=== PATIENT | female | born 1970 | race Caucasian/White ===

== ENCOUNTER 2018-12-21 11:00 | Outpatient (RCR) ==
--- NOTE | 2018-11-22 11:56 | RS.OPPTDN ---
Subjective Date of Note: 11/22/18 Visit #: 3 Number of visits approved by Insurance: na Date of Evaluation: 11/15/18 Payer Source: Insurance Treatment Diagnosis: open dislocation r ankle, R ankle pain, joint stiffness, joint effusion Current Subjective/complaints:: Patient reports she is seeing improvement in strength and motion of the right ankle. States she continues to use the w/c when going out in public and at work. *Precautions: WBAT with Cam boot, may remove boot for ex. Pain Assessment - Pain Description Pain Location: right ankle, heel Current Pain Intensity: mod with weight-bearing - Treatment Modality: Ultrasound Parameters/Method Applied: [id number] at 1.5w/cm2 to the right ankle and along the distal achilles tendon. Patient Position: Supine - Heat/Cryotherapy Treatment: Hot Pack ([id number] to the right foot and ankle prior to US and EX. ) Interventions - Exercise/Activities/Manual Therapy Exercises/Activities: Assisted ROM right ankle. Gentle end range stretching. Isometric right ankle DF, IV, and EV. Reviewed towel stretch. Soleus stretch with stool in sitting. Standing with walker for weight shifting and heel cord stretch. Worked on weight-bearing and modified toe-up on right. In sitting, right FAQ and ham curl with yellow theraband. Wobble board with right foot. Total minutes of Exercise: 24mins Manual Therapy: Retrograde massage to right foot and ankle. Total minutes of Manual Therapy: 3mins HOME EXERCISE PROGRAM: pt given written HEP including isometric DF, PF, inversion, eversion as well as towel stretch. Steps stretch for soleus/heel cords. Standing heel cord stretch, knee flex, and hip abd. - Charges Timed Code Treatment Minutes: 39mins Total Treatment Time: 54mins Procedures billed for this date of service:: HP, US, EX2 Assessment: Patient doing better with standing, weight-bearing, and exercises today. Patient Education: Body/Joint mechanics, Home Exercise Program, Home Safety Patient demonstrates compliance with HEP?: Yes Short Term Goals Goal #1: pt independent with initial HEP Goal to be met by: 12/06/18 Progress towards Goal:: Progressing Goal #2: Decreased edema R ankle Goal to be met by: 12/06/18 Progress towards Goal:: Progressing Goal #3: pt amb in dept with walker with CAM boot WBAT CGA 50 ft Goal to be met by: 12/06/18 Progress towards Goal:: Progressing Goal #4: Improve R ankle ROM DF -5, PF 20, IV 20, eversion 15 Goal to be met by: 12/06/18 Cigar Packer Goals Goal #1: pt amb functional household distances with AAD independently with boot WBAT Goal to be met by: 12/27/18 Goal #2: pt report pain < 4/10 with amb in R ankle Goal to be met by: 12/27/18 Goal #3: Improve LE functional scale > 35 Goal to be met by: 12/27/18 Goal #4: R ankle strength improved to 4-/5 Goal to be met by: 12/27/18 Plan Dates of Mcfp Goals: 12/27/18 Expiration date of current Insurance Approval:: 12/27/18 PLAN: Continue modalities, manual therapy, and progress exercise to increase functional activity level.
--- NOTE | 2018-11-23 11:55 | RS.OPPTDN ---
Subjective Date of Note: 11/23/18 Visit #: 4 Number of visits approved by Insurance: na Date of Evaluation: 11/15/18 Payer Source: Insurance Treatment Diagnosis: open dislocation r ankle, R ankle pain, joint stiffness, joint effusion Current Subjective/complaints:: Patient reports right ankle seems less swollen and ROM is progressing. States she is working on putting more weight on the right LE when standing and walking. *Precautions: WBAT with Cam boot, may remove boot for ex. Pain Assessment - Pain Description Pain Location: right heel, ankle Current Pain Intensity: mild to mod with WB, no pain at rest - Treatment Modality: Ultrasound Parameters/Method Applied: [id number] at 1.5w/cm2 to the right ankle and along the achilles tendon. Patient Position: Supine - Heat/Cryotherapy Treatment: Hot Pack ([id number] to the right foot/ankle prior to US and EX. Patient in supine. ) Interventions - Exercise/Activities/Manual Therapy Exercises/Activities: Assisted ROM right ankle. Gentle end range stretching. Isometric right ankle DF, IV, and EV. AROM right ankle, including circles cw and ccw. Soleus stretch with stool in sitting. Standing with walker for weight shifting and heel cord stretch. Forward weight shifting onto right forefoot, then onto right heel. In sitting, wobble board for right ankle ROM. In sitting , added 3# to right ankle for resisted LAQ and hip flexion. Total minutes of Exercise: 22mins Manual Therapy: Retrograde massage to right foot and ankle. Total minutes of Manual Therapy: 15mins HOME EXERCISE PROGRAM: pt given written HEP including isometric DF, PF, inversion, eversion as well as towel stretch. Steps stretch for soleus/heel cords. Standing heel cord stretch, knee flex, and hip abd. - Charges Timed Code Treatment Minutes: 47mins Total Treatment Time: 62mins Procedures billed for this date of service:: HP, US, MT, EX Assessment: Patient reporting consistent improvement with weight bearing. Patient Education: Home Exercise Program Patient demonstrates compliance with HEP?: Yes Short Term Goals Goal #1: pt independent with initial HEP Goal to be met by: 12/06/18 Progress towards Goal:: Progressing Goal #2: Decreased edema R ankle Goal to be met by: 12/06/18 Progress towards Goal:: Progressing Goal #3: pt amb in dept with walker with CAM boot WBAT CGA 50 ft Goal to be met by: 12/06/18 Progress towards Goal:: Progressing Goal #4: Improve R ankle ROM DF -5, PF 20, IV 20, eversion 15 Goal to be met by: 12/06/18 Auto Painter Helper Goals Goal #1: pt amb functional household distances with AAD independently with boot WBAT Goal to be met by: 12/27/18 Goal #2: pt report pain < 4/10 with amb in R ankle Goal to be met by: 12/27/18 Goal #3: Improve LE functional scale > 35 Goal to be met by: 12/27/18 Goal #4: R ankle strength improved to 4-/5 Goal to be met by: 12/27/18 Plan Dates of Prison Goals: 12/27/18 Expiration date of current Insurance Approval:: 12/27/18 PLAN: Continue modalities, manual therapy, and progressive exercise to increase functional ambulation.
--- NOTE | 2018-11-26 16:29 | RS.OPPTDN ---
Subjective Date of Note: 11/26/18 Visit #: 5 Number of visits approved by Insurance: n/a Date of Evaluation: 11/15/18 Payer Source: Insurance Treatment Diagnosis: open dislocation r ankle, R ankle pain, joint stiffness, joint effusion Current Subjective/complaints:: pt states that she feels like she is getting stronger since starting therapy. States she is able to be up walking in the house with rwx, but continues to use w/c for longer distances. *Precautions: WBAT with Cam boot, may remove boot for ex. Pain Assessment - Pain Description Pain Location: R ankle Pain Description: Aching Current Pain Intensity: 3 - Treatment Modality: Ultrasound Parameters/Method Applied: 1.5 w/cm2 x 10 mins Treatment Area: R ankle and achilles Patient Position: Supine - Heat/Cryotherapy Treatment: Hot Pack Comments:: R ankle x 15 mins prior to ex Interventions - Exercise/Activities/Manual Therapy Exercises/Activities: pt received passive stretching to R heel cord, Isometric R ankle DF/PF, Inversion/Eversion as well as ankle circles. pt worked on wobble board R ankle and performed LAQ, seated hip flex with 3# wt to R LE 2 sets of 10 reps. pt also in standing worked on weight shifting forward and back as well as R to L. Manual Therapy: Retrograde massage to right foot and ankle. HOME EXERCISE PROGRAM: pt given written HEP including isometric DF, PF, inversion, eversion as well as towel stretch. Steps stretch for soleus/heel cords. Standing heel cord stretch, knee flex, and hip abd. - Charges Timed Code Treatment Minutes: 42 Total Treatment Time: 59 Procedures billed for this date of service:: hp, u/s, ex 2 Assessment: pt continues with edema R foot and lower leg. pt is improving with increased ability to weight bear as well as improved strength RLE. Patient Education: Home Exercise Program, Education of Plan of Care Patient demonstrates compliance with HEP?: Yes Short Term Goals Goal #1: pt independent with initial HEP Goal to be met by: 12/06/18 Progress towards Goal:: Met Goal #2: Decreased edema R ankle Goal to be met by: 12/06/18 Progress towards Goal:: Progressing Goal #3: pt amb in dept with walker with CAM boot WBAT CGA 50 ft Goal to be met by: 12/06/18 Progress towards Goal:: Progressing Goal #4: Improve R ankle ROM DF -5, PF 20, IV 20, eversion 15 Goal to be met by: 12/06/18 Progress towards Goal:: Progressing Dock Attendant Goals Goal #1: pt amb functional household distances with AAD independently with boot WBAT Goal to be met by: 12/27/18 Goal #2: pt report pain < 4/10 with amb in R ankle Goal to be met by: 12/27/18 Goal #3: Improve LE functional scale > 35 Goal to be met by: 12/27/18 Goal #4: R ankle strength improved to 4-/5 Goal to be met by: 12/27/18 Plan Dates of Dock Attendant Goals: 12/27/18 Expiration date of current Insurance Approval:: 12/27/18 PLAN: plan to continue with ex for stretching, strengthening as well as modalities to improve R ankle ROM as well as functional mobility.
--- NOTE | 2018-11-29 12:41 | RS.OPPTDN ---
Subjective Date of Note: 11/29/18 Visit #: 6 Number of visits approved by Insurance: na Date of Evaluation: 11/15/18 Payer Source: Insurance Treatment Diagnosis: open dislocation r ankle, R ankle pain, joint stiffness, joint effusion Current Subjective/complaints:: Patient reports she was able to walk into [employer] and into a local restaurant with crutches. States she would like to progress to a cane. *Precautions: WBAT with Cam boot, may remove boot for ex. Pain Assessment - Pain Description Pain Location: right ankle Current Pain Intensity: mild to mod with WB - Treatment Modality: Ultrasound Parameters/Method Applied: [id number] to the right ankle and along the distal achilles tendon. Patient in supine. - Heat/Cryotherapy Treatment: Hot Pack ([id number] to the right ankle prior to US and EX. patient in supine. ) Interventions - Exercise/Activities/Manual Therapy Exercises/Activities: pt received passive stretching to right heel cord, Isometric right ankle DF, PF, Inv, and Eversion, ankle circles cw and ccw. Wobble board R ankle and performed LAQ, seated hip flex, and ham curl with green theraband. Standing weight shifting and instruction on proper use of cruthches and step sequence on stairs. Total minutes of Exercise: 29mins Manual Therapy: na HOME EXERCISE PROGRAM: pt given written HEP including isometric DF, PF, inversion, eversion as well as towel stretch. Steps stretch for soleus/heel cords. Standing heel cord stretch, knee flex, and hip abd. - Charges Timed Code Treatment Minutes: 39mins Total Treatment Time: 54mins Procedures billed for this date of service:: HP, US, EX2 Assessment: Patient progressing with strengthening of the right LE and with ambulation with walker and crutches. Patient Education: Body/Joint mechanics, Home Exercise Program Patient demonstrates compliance with HEP?: Yes Short Term Goals Goal #1: pt independent with initial HEP Goal to be met by: 12/06/18 Progress towards Goal:: Met Goal #2: Decreased edema R ankle Goal to be met by: 12/06/18 Progress towards Goal:: Progressing Goal #3: pt amb in dept with walker with CAM boot WBAT CGA 50 ft Goal to be met by: 12/06/18 Progress towards Goal:: Met Goal #4: Improve R ankle ROM DF -5, PF 20, IV 20, eversion 15 Goal to be met by: 12/06/18 Progress towards Goal:: Progressing Cloth Finishing Range Back Tender Goals Goal #1: pt amb functional household distances with AAD independently with boot WBAT Goal to be met by: 12/27/18 Progress towards goal: Progressing Goal #2: pt report pain < 4/10 with amb in R ankle Goal to be met by: 12/27/18 Goal #3: Improve LE functional scale > 35 Goal to be met by: 12/27/18 Goal #4: R ankle strength improved to 4-/5 Goal to be met by: 12/27/18 Plan Dates of Cloth Finishing Range Back Tender Goals: 12/27/18 Expiration date of current Insurance Approval:: 12/27/18 PLAN: Progress with strength and ROM of the right LE to increase functional mobility.
--- NOTE | 2018-11-30 16:34 | RS.OPPTDN ---
Subjective Date of Note: 11/30/18 Visit #: 7 Number of visits approved by Insurance: na Date of Evaluation: 11/15/18 Payer Source: Insurance Treatment Diagnosis: open dislocation r ankle, R ankle pain, joint stiffness, joint effusion Current Subjective/complaints:: Patient states she is walking better and feels treatment is helping with right ankle ROM. *Precautions: WBAT with Cam boot, may remove boot for ex. Pain Assessment - Pain Description Pain Location: right ankle Pain Description: stiffness Current Pain Intensity: mild with weight-bearing. - Treatment Modality: Ultrasound Parameters/Method Applied: [id number] to the right ankle at 1.5w/cm2 Patient Position: Supine Interventions - Exercise/Activities/Manual Therapy Exercises/Activities: Pt received passive stretching to right heel cord, Isometric right ankle DF, PF, Inv, and Eversion, ankle circles cw and ccw. Wobble board R ankle and performed LAQ, seated hip flex, and ham curl with green theraband. Works on step with crutches, patient education of safety with crutches on steps. Patient walks into dept with crutches and back to car. Total minutes of Exercise: 37mins Manual Therapy: na HOME EXERCISE PROGRAM: pt given written HEP including isometric DF, PF, inversion, eversion as well as towel stretch. Steps stretch for soleus/heel cords. Standing heel cord stretch, knee flex, and hip abd. - Objective Findings Observations,measurements,etc.: Active right ankle df to neutral - Charges Timed Code Treatment Minutes: 49mins Total Treatment Time: 55mins Procedures billed for this date of service:: US, EX2 Assessment: Pt progressing with amb with crutches and ROM of the right ankle. Patient Education: Body/Joint mechanics, Home Exercise Program, Home Safety, Activity Modification Comments: Focus of education is safety with crutches and steps. Patient demonstrates compliance with HEP?: Yes Short Term Goals Goal #1: pt independent with initial HEP Goal to be met by: 12/06/18 Progress towards Goal:: Met Goal #2: Decreased edema R ankle Goal to be met by: 12/06/18 Progress towards Goal:: Progressing Goal #3: pt amb in dept with walker with CAM boot WBAT CGA 50 ft Goal to be met by: 12/06/18 Progress towards Goal:: Met Goal #4: Improve R ankle ROM DF -5, PF 20, IV 20, eversion 15 Goal to be met by: 12/06/18 Progress towards Goal:: Partially Met Administrator Goals Goal #1: pt amb functional household distances with AAD independently with boot WBAT Goal to be met by: 12/27/18 Progress towards goal: Met Goal #2: pt report pain < 4/10 with amb in R ankle Goal to be met by: 12/27/18 Progress towards goal: Partially Met Goal #3: Improve LE functional scale > 35 Goal to be met by: 12/27/18 Goal #4: R ankle strength improved to 4-/5 Goal to be met by: 12/27/18 Progress towards goal: Progressing Plan Dates of Administrator Goals: 12/27/18 Expiration date of current Insurance Approval:: 12/27/18 PLAN: Progress with strength and ROM.
--- NOTE | 2018-12-03 16:26 | RS.OPPTDN ---
Subjective Date of Note: 12/03/18 Visit #: 8 Number of visits approved by Insurance: na Date of Evaluation: 11/15/18 Payer Source: Insurance Treatment Diagnosis: open dislocation r ankle, R ankle pain, joint stiffness, joint effusion Current Subjective/complaints:: Reports increased soreness and tenderness right lateral heel as she has been up on her feet a lot at work today. Reports decreased pain and increased flexibility following treatment. *Precautions: WBAT with Cam boot, may remove boot for ex. Pain Assessment - Pain Description Pain Location: right ankle and heel Pain Description: Dull, Aching Pain Description: tenderness Current Pain Intensity: moderate - Treatment Modality: Ultrasound Parameters/Method Applied: [id number] at 1.5w/cm2 to the right ankle and along the distal achilles tendon. Patient Position: Supine Interventions - Exercise/Activities/Manual Therapy Exercises/Activities: Pt received passive stretching to right heel cord, Isometric right ankle DF, PF, Inv, and Eversion, ankle circles cw and ccw. Ended with additional long stretching of heel cords. Patient walks into dept with crutches and is taken back to car in wheelchair. Total minutes of Exercise: 15mins Manual Therapy: [id number] Directional massage through the right calf to reduce swelling in the right foot and ankle. Total minutes of Manual Therapy: 19mins HOME EXERCISE PROGRAM: pt given written HEP including isometric DF, PF, inversion, eversion as well as towel stretch. Steps stretch for soleus/heel cords. Standing heel cord stretch, knee flex, and hip abd. - Charges Timed Code Treatment Minutes: 46mins Total Treatment Time: 50mins Procedures billed for this date of service:: US, MT, EX Assessment: Patient increasing her functional activity level at home and at work. Patient has some increase discomfort today due to being up on her feet for longer period at work. Patient Education: Body/Joint mechanics, Home Exercise Program Patient demonstrates compliance with HEP?: Yes Short Term Goals Goal #1: pt independent with initial HEP Goal to be met by: 12/06/18 Progress towards Goal:: Met Goal #2: Decreased edema R ankle Goal to be met by: 12/06/18 Progress towards Goal:: Progressing Goal #3: pt amb in dept with walker with CAM boot WBAT CGA 50 ft Goal to be met by: 12/06/18 Progress towards Goal:: Met Goal #4: Improve R ankle ROM DF -5, PF 20, IV 20, eversion 15 Goal to be met by: 12/06/18 Progress towards Goal:: Partially Met Correction Goals Goal #1: pt amb functional household distances with AAD independently with boot WBAT Goal to be met by: 12/27/18 Progress towards goal: Met Goal #2: pt report pain < 4/10 with amb in R ankle Goal to be met by: 12/27/18 Progress towards goal: Partially Met Goal #3: Improve LE functional scale > 35 Goal to be met by: 12/27/18 Goal #4: R ankle strength improved to 4-/5 Goal to be met by: 12/27/18 Progress towards goal: Progressing Plan Dates of Orthotics Technician Goals: 12/27/18 Expiration date of current Insurance Approval:: 12/27/18 PLAN: Continue modalities, manual therapy, and progressive exercise to increase functional ambulation and activity level.
--- NOTE | 2018-12-06 16:02 | RS.OPPTDN ---
Subjective Date of Note: 12/06/18 Visit #: 9 Number of visits approved by Insurance: na Date of Evaluation: 11/15/18 Payer Source: Insurance Treatment Diagnosis: open dislocation r ankle, R ankle pain, joint stiffness, joint effusion Current Subjective/complaints:: Patient reports she is pleased with increased ROM of the right ankle. She states that having US seems to help quite a lot. States she has stopped using the w/c at work and walking with crutches. States she uses the w/c to get around her home when she needs to rest the right LE. *Precautions: WBAT with Cam boot, may remove boot for ex. - Treatment Modality: Ultrasound Parameters/Method Applied: [id number] at 1.5w/cm2 to the right foot and ankle prior to EX. Patient Position: Supine Interventions - Exercise/Activities/Manual Therapy Exercises/Activities: Pt received passive stretching to right heel cord, Isometric right ankle DF, PF, Inv, and Eversion, ankle circles cw and ccw. Patient walks into dept with crutches and is able to walk back to car following treatment. Gait is slow but she actively works on right heel strike and push/toe -off. Total minutes of Exercise: 16misn Manual Therapy: x5mins Directional massage to the right foot and ankle. Total minutes of Manual Therapy: 5mins HOME EXERCISE PROGRAM: pt given written HEP including isometric DF, PF, inversion, eversion as well as towel stretch. Steps stretch for soleus/heel cords. Standing heel cord stretch, knee flex, and hip abd. - Objective Findings Observations,measurements,etc.: Patient able to demo 4 degrees active right ankle df, with approx 15 degrees of total motion with right ankle df/pf. - Charges Timed Code Treatment Minutes: 33mins Total Treatment Time: 37mins Procedures billed for this date of service:: US, EX Assessment: Patient progressing well with functional ambulation with crutches at work and home. She also demos increased ROM of the right ankle. Patient Education: Home Exercise Program, Home Safety, Activity Modification Patient demonstrates compliance with HEP?: Yes Short Term Goals Goal #1: pt independent with initial HEP Goal to be met by: 12/06/18 Progress towards Goal:: Met Goal #2: Decreased edema R ankle Goal to be met by: 12/06/18 Progress towards Goal:: Progressing Goal #3: pt amb in dept with walker with CAM boot WBAT CGA 50 ft Goal to be met by: 12/06/18 Progress towards Goal:: Met Goal #4: Improve R ankle ROM DF -5, PF 20, IV 20, eversion 15 Goal to be met by: 12/06/18 Progress towards Goal:: Partially Met Custodial Goals Goal #1: pt amb functional household distances with AAD independently with boot WBAT Goal to be met by: 12/27/18 Progress towards goal: Met Goal #2: pt report pain < 4/10 with amb in R ankle Goal to be met by: 12/27/18 Progress towards goal: Partially Met Goal #3: Improve LE functional scale > 35 Goal to be met by: 12/27/18 Goal #4: R ankle strength improved to 4-/5 Goal to be met by: 12/27/18 Progress towards goal: Progressing Plan Dates of Custodial Goals: 12/27/18 Expiration date of current Insurance Approval:: 12/27/18 PLAN: Continue modalities and progress exercise to increase strength, ROM, and functional activity level.
--- NOTE | 2018-12-07 16:31 | RS.CXNS ---
Date of scheduled appointment: 12/07/18 Type: Cancel (Patient cancelled appointment today due to having an tooth abcess)
--- NOTE | 2018-12-10 16:24 | RS.OPPTDN ---
Subjective Date of Note: 12/10/18 Visit #: 10 Number of visits approved by Insurance: na Date of Evaluation: 11/15/18 Payer Source: Insurance Treatment Diagnosis: open dislocation r ankle, R ankle pain, joint stiffness, joint effusion Current Subjective/complaints:: Patient reports she did very little standing for 2 days over the weekend. States she noticed a significant decrease in right foot and ankle swelling. *Precautions: WBAT with Cam boot, may remove boot for ex. Pain Assessment - Pain Description Pain Location: right foot and ankle Pain Description: Tightness, Aching Current Pain Intensity: mild - Treatment Modality: Ultrasound Parameters/Method Applied: [id number] at 1.5w/cm2 to the right ankle with focus on lateral ankle and along achilles tendon. Patient Position: Supine Interventions - Exercise/Activities/Manual Therapy Exercises/Activities: Pt received passive stretching to right heel cord, isometric right ankle DF, PF, Inv, and Eversion, ankle circles cw and ccw. In sitting, wobble board for ROM and passive stretching right heelcord. Total minutes of Exercise: 14mins Manual Therapy: 14mins Directional massage to the right foot and ankle. Total minutes of Manual Therapy: 14mins HOME EXERCISE PROGRAM: pt given written HEP including isometric DF, PF, inversion, eversion as well as towel stretch. Steps stretch for soleus/heel cords. Standing heel cord stretch, knee flex, and hip abd. - Charges Timed Code Treatment Minutes: 40mins Total Treatment Time: 43mins Procedures billed for this date of service:: US, MT, EX Assessment: Patient reporting progress with swelling, ROM, and ambulation. Patient Education: Body/Joint mechanics, Home Exercise Program Patient demonstrates compliance with HEP?: Yes Short Term Goals Goal #1: pt independent with initial HEP Goal to be met by: 12/06/18 Progress towards Goal:: Met Goal #2: Decreased edema R ankle Goal to be met by: 12/06/18 Progress towards Goal:: Progressing Goal #3: pt amb in dept with walker with CAM boot WBAT CGA 50 ft Goal to be met by: 12/06/18 Progress towards Goal:: Met Goal #4: Improve R ankle ROM DF -5, PF 20, IV 20, eversion 15 Goal to be met by: 12/06/18 Progress towards Goal:: Partially Met National Insurance Officer Goals Goal #1: pt amb functional household distances with AAD independently with boot WBAT Goal to be met by: 12/27/18 Progress towards goal: Met Goal #2: pt report pain < 4/10 with amb in R ankle Goal to be met by: 12/27/18 Progress towards goal: Partially Met Goal #3: Improve LE functional scale > 35 Goal to be met by: 12/27/18 Goal #4: R ankle strength improved to 4-/5 Goal to be met by: 12/27/18 Progress towards goal: Progressing Plan Dates of Usp Goals: 12/27/18 Expiration date of current Insurance Approval:: 12/27/18 PLAN: Continue modalities and progress exercise to increase functional ambulation and activity level.
--- NOTE | 2018-12-13 16:33 | RS.OPPTDN ---
Subjective Date of Note: 12/13/18 Visit #: 11 Number of visits approved by Insurance: na Date of Evaluation: 11/15/18 Payer Source: Insurance Treatment Diagnosis: open dislocation r ankle, R ankle pain, joint stiffness, joint effusion Current Subjective/complaints:: Patient reports she has progressed to one crutch with ambulation. She also reports trying to stand and perform light weight shift onto right LE. *Precautions: WBAT with Cam boot, may remove boot for ex. - Treatment Modality: Ultrasound Parameters/Method Applied: [id number] at 1.5w/cm2 to the right ankle and along both sides of the achilles tendon. Patient Position: Supine Interventions - Exercise/Activities/Manual Therapy Exercises/Activities: Pt received passive stretching to right heel cord, isometric right ankle DF, PF, Inv, and Eversion, ankle circles cw and ccw. Red theraband for resisted right ankle df, pf, inversion, and eversion. In sitting , right heelcord stretch. Standing weight shift on right. Modified mini-squat. Forward step on right for modified heel strike. Back step for weight bearing on forefoot for toe-off. Walked in hallway and given verbal cues for heel strike and toe-off on the right LE, using crutch on left. Total minutes of Exercise: 18mins Manual Therapy: 10mins Directional massage to the right foot and ankle with long stretching of plantar fascia and heel cord. Total minutes of Manual Therapy: 10mins HOME EXERCISE PROGRAM: pt given written HEP including isometric DF, PF, inversion, eversion as well as towel stretch. Steps stretch for soleus/heel cords. Standing heel cord stretch, knee flex, and hip abd. - Charges Timed Code Treatment Minutes: 42mins Total Treatment Time: 45mins Procedures billed for this date of service:: US, MT, EX Assessment: Patient progressing with strength, ROM, and gait pattern. Patient Education: Home Exercise Program, Home Safety, Activity Modification Patient demonstrates compliance with HEP?: Yes Short Term Goals Goal #1: pt independent with initial HEP Goal to be met by: 12/06/18 Progress towards Goal:: Met Goal #2: Decreased edema R ankle Goal to be met by: 12/06/18 Progress towards Goal:: Progressing Goal #3: pt amb in dept with walker with CAM boot WBAT CGA 50 ft Goal to be met by: 12/06/18 Progress towards Goal:: Met Goal #4: Improve R ankle ROM DF -5, PF 20, IV 20, eversion 15 Goal to be met by: 12/06/18 Progress towards Goal:: Partially Met Spray Drier Operator Goals Goal #1: pt amb functional household distances with AAD independently with boot WBAT Goal to be met by: 12/27/18 Progress towards goal: Met Goal #2: pt report pain < 4/10 with amb in R ankle Goal to be met by: 12/27/18 Progress towards goal: Partially Met Goal #3: Improve LE functional scale > 35 Goal to be met by: 12/27/18 Goal #4: R ankle strength improved to 4-/5 Goal to be met by: 12/27/18 Progress towards goal: Progressing Plan Dates of Spray Drier Operator Goals: 12/27/18 Expiration date of current Insurance Approval:: 12/27/18 PLAN: Progress with strength and ROM of the right LE to increase functional activity level and return to PLOF.
--- NOTE | 2018-12-14 14:05 | RS.OPPTDN ---
Subjective Date of Note: 12/14/18 Visit #: 12 Number of visits approved by Insurance: na Date of Evaluation: 11/15/18 Payer Source: Insurance Treatment Diagnosis: open dislocation r ankle, R ankle pain, joint stiffness, joint effusion Current Subjective/complaints:: Patient reports doing better walking with one crutch. She states she performed standing with walker and attempted to increase weight bearing on the right foot/ankle without boot. *Precautions: WBAT with Cam boot, may remove boot for ex. Pain Assessment - Pain Description Pain Location: right ankle Pain Description: Tightness Current Pain Intensity: mild discomfort with weight-bearing - Treatment Modality: Ultrasound Parameters/Method Applied: [id number] at 1.5w/cm2 to the right ankle and along the achilles tendon. Patient Position: Supine Interventions - Exercise/Activities/Manual Therapy Exercises/Activities: Passive stretching to right heel cord, isometric right ankle DF, PF, Inv, and Eversion, ankle circles cw and ccw. Red theraband for resisted right ankle df, pf, inversion, and eversion. In sitting, right heelcord stretch. 3# for LAQ and Hip flex. Standing weight shift onto right. Standing with walker for modified toe-ups, mini-squat, forward weight shift onto heel and push off of ball of right foot. Walked in department with instruction for proper use of crutch on left side. Total minutes of Exercise: 23mins Manual Therapy: 5mins Directional massage to the right foot and ankle. Total minutes of Manual Therapy: 5mins HOME EXERCISE PROGRAM: pt given written HEP including isometric DF, PF, inversion, eversion as well as towel stretch. Steps stretch for soleus/heel cords. Standing heel cord stretch, knee flex, and hip abd. - Objective Findings Observations,measurements,etc.: Active right df 2 to 3 degrees, with total motion at approx 21 degrees. - Charges Timed Code Treatment Minutes: 40mins Total Treatment Time: 44mins Procedures billed for this date of service:: US, EX2 Assessment: Patient progressing well with ambulation and working on increased weight bearing on right LE. Patient Education: Home Exercise Program Patient demonstrates compliance with HEP?: Yes Short Term Goals Goal #1: pt independent with initial HEP Goal to be met by: 12/06/18 Progress towards Goal:: Met Goal #2: Decreased edema R ankle Goal to be met by: 12/06/18 Progress towards Goal:: Progressing Goal #3: pt amb in dept with walker with CAM boot WBAT CGA 50 ft Goal to be met by: 12/06/18 Progress towards Goal:: Met Goal #4: Improve R ankle ROM DF -5, PF 20, IV 20, eversion 15 Goal to be met by: 12/06/18 Progress towards Goal:: Partially Met Clin Application Specialist Goals Goal #1: pt amb functional household distances with AAD independently with boot WBAT Goal to be met by: 12/27/18 Progress towards goal: Met Goal #2: pt report pain < 4/10 with amb in R ankle Goal to be met by: 12/27/18 Progress towards goal: Partially Met Goal #3: Improve LE functional scale > 35 Goal to be met by: 12/27/18 Goal #4: R ankle strength improved to 4-/5 Goal to be met by: 12/27/18 Progress towards goal: Progressing Plan Dates of Clin Application Specialist Goals: 12/27/18 Expiration date of current Insurance Approval:: 12/27/18 PLAN: Progress with ROM and strengthening to increase functional ambulation and activity level.
--- NOTE | 2018-12-17 10:05 | RS.OPPTDN ---
Subjective Date of Note: 12/17/18 Visit #: 13 Number of visits approved by Insurance: [id number] Date of Evaluation: 11/15/18 Payer Source: Insurance Treatment Diagnosis: open dislocation r ankle, R ankle pain, joint stiffness, joint effusion Current Subjective/complaints:: Patient says she has had mild pain to the R heel. Reports swelling seems to be decreasing slowly and states she elevates, ices, and massages at home. *Precautions: WBAT with Cam boot, may remove boot for ex. - Treatment Modality: Ultrasound Parameters/Method Applied: continous @ 1.5 w/cm2 x 12 mins to the R lateral malleoli region and to the heel Patient Position: Supine Interventions - Exercise/Activities/Manual Therapy Exercises/Activities: Passive stretching to right heel cord, isometric right ankle DF, PF, Inv, and Eversion, ankle circles cw and ccw. Red theraband for resisted right ankle df, pf, inversion, and eversion. In sitting, right heelcord stretch. 3# for LAQ and Hip flex. Standing weight shift onto right. Standing at bed for modified toe-ups, limited range mini-squat, forward weight shift onto heel and push off of ball of right foot. Walked in department with instruction for proper use of crutch on left side. Total minutes of Exercise: 28 Manual Therapy: na HOME EXERCISE PROGRAM: pt given written HEP including isometric DF, PF, inversion, eversion as well as towel stretch. Steps stretch for soleus/heel cords. Standing heel cord stretch, knee flex, and hip abd. - Charges Timed Code Treatment Minutes: 40 Total Treatment Time: 40 Procedures billed for this date of service:: u/s, ex2 Assessment: Patient improving with being able to apply increased weight to the R LE. She is feeling more confident about her bal and gait while using 1 crutch. She is able to ascend/descend multiple stairs at her daughters apt over the weekend with supervison, but is not comfortable doing this without someone close by. She is compliant with HEP and demo 4/5 strength for R ankle. Patient Education: Home Exercise Program Patient demonstrates compliance with HEP?: Yes Short Term Goals Goal #1: pt independent with initial HEP Goal to be met by: 12/06/18 Progress towards Goal:: Met Goal #2: Decreased edema R ankle Goal to be met by: 12/06/18 Progress towards Goal:: Progressing Goal #3: pt amb in dept with walker with CAM boot WBAT CGA 50 ft Goal to be met by: 12/06/18 Progress towards Goal:: Met Goal #4: Improve R ankle ROM DF -5, PF 20, IV 20, eversion 15 Goal to be met by: 12/06/18 Progress towards Goal:: Partially Met Scoop Operator Goals Goal #1: pt amb functional household distances with AAD independently with boot WBAT Goal to be met by: 12/27/18 Progress towards goal: Met Goal #2: pt report pain < 4/10 with amb in R ankle Goal to be met by: 12/27/18 Progress towards goal: Partially Met Goal #3: Improve LE functional scale > 35 Goal to be met by: 12/27/18 Goal #4: R ankle strength improved to 4-/5 Goal to be met by: 12/27/18 Progress towards goal: Progressing Plan Dates of Scoop Operator Goals: 12/27/18 Expiration date of current Insurance Approval:: 12/27/18 PLAN: Patient to continue TIW for modalities and therex to build flexibility and strength to the R LE progressing gait.
--- NOTE | 2018-12-21 12:23 | RS.OPPTDN ---
Subjective Date of Note: 12/21/18 Visit #: 14 Number of visits approved by Insurance: na Date of Evaluation: 11/15/18 Payer Source: Insurance Treatment Diagnosis: open dislocation r ankle, R ankle pain, joint stiffness, joint effusion Current Subjective/complaints:: Patient reports putting weight on right LE and taking a few steps, using walker but no cam boot, at home. States she can see definite progress with strength and ROM of the right foot/ankle, although it is slow. *Precautions: WBAT with Cam boot, may remove boot for ex. Pain Assessment - Pain Description Pain Location: right foot and ankle Current Pain Intensity: mild - Treatment Modality: Ultrasound Parameters/Method Applied: [id number] at 1.5w/cm2 to the right lateral ankle and along both sides of the achilles tendon. Patient Position: Supine Interventions - Exercise/Activities/Manual Therapy Exercises/Activities: Passive stretching to right heel cord, isometric right ankle DF, PF, Inv, and Eversion. Red theraband for resisted right ankle df, pf, inversion, and eversion. SAQ 3# and ham sets. In sitting, right heelcord stretch. 3# for LAQ and Hip flex. Standing weight shift onto right. Modified toe-ups, limited range mini-squat, forward weight shift onto heel and push off of ball of right foot, all with walker ABS and no cam boot. Walked in department with instruction to increase heel strike/toe-off, with walker and no cam boot. Leg press with 30# [id number], then 30# for ankle df/pf 20reps. Total minutes of Exercise: 31mins Manual Therapy: na HOME EXERCISE PROGRAM: pt given written HEP including isometric DF, PF, inversion, eversion as well as towel stretch. Steps stretch for soleus/heel cords. Standing heel cord stretch, knee flex, and hip abd. - Objective Findings Observations,measurements,etc.: Demos active right df bewtween 1 and 2 degrees, with ROM being approx 17 degrees. - Charges Timed Code Treatment Minutes: 43mins Total Treatment Time: 44mins Procedures billed for this date of service:: US, EX2 Assessment: Pt progressing with strengthening, ROM, and gait training. Patient Education: Home Exercise Program, Home Safety, Activity Modification Patient demonstrates compliance with HEP?: Yes Short Term Goals Goal #1: pt independent with initial HEP Goal to be met by: 12/06/18 Progress towards Goal:: Met Goal #2: Decreased edema R ankle Goal to be met by: 12/06/18 Progress towards Goal:: Progressing Goal #3: pt amb in dept with walker with CAM boot WBAT CGA 50 ft Goal to be met by: 12/06/18 Progress towards Goal:: Met Goal #4: Improve R ankle ROM DF -5, PF 20, IV 20, eversion 15 Goal to be met by: 12/06/18 Progress towards Goal:: Partially Met Roller Goals Goal #1: pt amb functional household distances with AAD independently with boot WBAT Goal to be met by: 12/27/18 Progress towards goal: Met Goal #2: pt report pain < 4/10 with amb in R ankle Goal to be met by: 12/27/18 Progress towards goal: Partially Met Goal #3: Improve LE functional scale > 35 Goal to be met by: 12/27/18 Goal #4: R ankle strength improved to 4-/5 Goal to be met by: 12/27/18 Progress towards goal: Progressing Plan Dates of Longterm Goals: 12/27/18 Expiration date of current Insurance Approval:: 12/27/18 PLAN: Progress with ROM and strengthening to improve gait and functional activity level.
== END 2018-12-22 23:59 ==
PROVIDERS: ATTEND Orthopaedic Surgery
DX: S93.04XD Dislocation of right ankle joint, subsequent encounter (principal); S91.001D Unspecified open wound, right ankle, subsequent encounter